=== PATIENT | female | born 1970 | race Caucasian/White ===

== ENCOUNTER 2021-11-23 20:24 | Emergency (ER) | payer OTHER, SELFPAY ==
--- NOTE | ~2021-11-23 | XR_ITS ---
EXAMINATION: XR ANKLE, LEFT CLINICAL INFORMATION: Fall. Pain. Swelling. COMPARISON: None TECHNIQUE: AP, lateral, and mortise views of the left ankle. FINDINGS: The bones and soft tissues are normal. No fracture. Alignment is anatomic. Joint spaces are maintained. No joint effusion. XR/XR ankle LT min 3V IMPRESSION: Normal left ankle.
[2021-11-23 21:44] VITALS: BP 99/72; PULSE 97; RESP 14; TEMP 36.6; O2SAT 98; BMI 25.6
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
[2021-11-23] MEDS: Ibuprofen 600 MG TABLET PO (23:43)
== END 2021-11-24 00:54 | disposition home or self-care (01) ==
PROVIDERS: Emergency Provider Emergency Medicine Emergency Medical Services; PCP Internal Medicine
DX: S93.402A Sprain of unspecified ligament of left ankle, initial encounter (principal); S96.912A Strain of unspecified muscle and tendon at ankle and foot level, left foot, initial encounter; X50.1XXA Overexertion from prolonged static or awkward postures, initial encounter; Y93.89 Activity, other specified; Y92.810 Car as the place of occurrence of the external cause; Y99.9 Unspecified external cause status
CPT/HCPCS: 73610; 99283; 99284

== ENCOUNTER 2022-05-22 07:05 | Outpatient (REF) | payer OTHER, SELFPAY ==
--- NOTE | ~2022-05-22 | MM_ITS ---
EXAMINATION: MM SCREENING DIGITAL BREAST TOMOSYNTHESIS, BILATERAL CLINICAL INFORMATION: Screening. Asymptomatic. The lifetime risk of breast cancer based on the Tyrer-Cuzick Model is 6%. COMPARISON: Mammography: 04/28/2019, 05/30/2016, 05/08/2016 TECHNIQUE: Digital breast tomosynthesis is performed in both the craniocaudal and mediolateral oblique views along with computer-aided detection (CAD). Synthesized 2D images are generated from the tomosynthesis. FINDINGS: There are scattered areas of fibroglandular density (ACR BI-RADS breast composition Category b). There are no significant masses, abnormal calcifications, or other abnormalities. Parenchymal pattern is similar to prior exam. There is no developing density or architectural abnormality. The axilla and skin contours are unremarkable. No significant changes. MM/MM tomosynthesis screening BI IMPRESSION: No mammographic evidence of malignancy. ASSESSMENT: BI-RADS 1: Negative RECOMMENDATION: Routine annual mammography screening. This patient's information was entered into a reminder system with a target due date for their next mammogram.
[2022-05-22 07:09] LABS: MANUAL DIFF FLAG NO
[2022-05-22 07:37] LABS: Basophils Percent Auto 0.7 % (0-2); Eosinophils Absolute Auto 0.2 X10*3/uL (0.0-0.4); Eosinophils Percent Auto 2.6 % (0-4); Hematocrit 44.7 % (37.0-47.0); Hemoglobin 14.7 g/dl (12.0-16.0); Imm Gran Abs Auto 0.02 X10*3/uL (0.00-0.03); Imm Gran Pct Auto 0.3 % (0.0-0.4); Lymphocytes Absolute Auto 1.5 X10*3/uL (1.2-4.9); Mean Corpuscular HGB Conc 32.9 g/dl (31.0-35.0); Mean Corpuscular Hemoglobin 33.2 pg (27.0-33.0); Mean Corpuscular Volume 100.9 fL (80.0-98.0); Mean Platelet Volume 9.4 fL (9.4-12.3); Monocytes Absolute Auto 0.5 X10*3/uL (0.1-1.2); Monocytes Percent Auto 9.3 % (2-11); Neutrophils Absolute Auto 3.6 x10*3/uL (2.0-8.3); Neutrophils Percent Auto 62.1 % (45-73); Platelet Count 263 X10*3/uL (160-400); Red Blood Count 4.43 X10*6/uL (4.20-5.50); Red Cell Distribution Width 11.9 % (11.0-16.0); White Blood Count 5.8 X10*3/uL (4.8-10.8)
[2022-05-22 07:55] LABS: Alanine Aminotransferase 24 U/L (0-31); Albumin Level 4.2 g/dL (3.5-5.0); Alkaline Phosphatase 75 U/L (39-117); Anion Gap 14 (12-20); Aspartate Amino Transferase 19 U/L (5-31); Bilirubin Total 0.5 mg/dL (0.0-1.0); Blood Urea Nitrogen 14 mg/dL (9-16); Calcium 9.2 mg/dL (8.4-10.2); Carbon Dioxide 22 mmol/L (22-29); Chloride 108 mmol/L (96-108); Cholesterol 201 mg/dL; Estimated Glomerular Filt Rate > 60; Glucose Fasting 96 mg/dL (60-99); HDL Cholesterol 52 mg/dL; LDL Cholesterol Calculated 129 mg/dl; Potassium 4.5 mmol/L (3.3-5.1); Sodium 139 mmol/L (135-145); Total Protein 6.7 g/dL (6.5-8.0); Triglycerides 103 mg/dL
[2022-05-22 08:18] LABS: Thyroid Stimulating Hormone 0.21 uIU/mL (0.32-4.0)
== END 2022-05-22 07:06 | disposition home or self-care (01) ==
LOC: HO.MAMMO 07:05
PROVIDERS: PCP Internal Medicine; Visit Provider Internal Medicine
DX: Z12.31 Encounter for screening mammogram for malignant neoplasm of breast (principal); Z13.0 Encounter for screening for diseases of the blood and blood-forming organs and certain disorders involving the immune mechanism; I10 Essential (primary) hypertension; E03.9 Hypothyroidism, unspecified; E78.5 Hyperlipidemia, unspecified
CPT/HCPCS: 36415; 77063; 77067; 80053; 80061; 84443; 85025

== ENCOUNTER 2022-09-18 17:30 | Emergency (ER) | payer OTHER, SELFPAY ==
--- NOTE | ~2022-09-18 | US_ITS ---
EXAMINATION: US ABDOMEN COMPLETE CLINICAL INFORMATION: Diffuse abdominal pain radiating to the back. COMPARISON: None TECHNIQUE: Real-time imaging of the abdominal viscera. FINDINGS: PANCREAS: The visualized portions of the pancreas appear within normal limits. The tail is obscured by overlying bowel gas. ABDOMINAL AORTA: The proximal, mid, and distal segments are normal in caliber. INFERIOR VENA CAVA: Visualized portions are normal. LIVER: The liver is normal in size. The liver contour is normal. Parenchymal echogenicity is normal. No focal hepatic lesion. There is no intrahepatic biliary duct dilatation seen. GALLBLADDER: The gallbladder is contracted limiting its evaluation. No significant pericholecystic free fluid. COMMON BILE DUCT: Normal in caliber measuring 0.2 cm in diameter. RIGHT KIDNEY: Normal. No hydronephrosis. No renal calculi or focal parenchymal lesions. The kidney measures 10 cm in maximum dimension. LEFT KIDNEY: Normal. No hydronephrosis. No renal calculi or focal parenchymal lesions. The kidney measures 10 cm in maximum dimension. SPLEEN: Normal. The spleen measures 8.7 cm in maximum dimension. FREE FLUID: None. US/US abdomen complete IMPRESSION: No acute abnormalities to explain the patient's symptoms, however it is important to know that the gallbladder is contracted limiting its evaluation. If clinically deemed appropriate, consider correlation with CT abdomen/pelvis.
--- NOTE | ~2022-09-18 | XR_ITS ---
EXAMINATION: XR CHEST CLINICAL INFORMATION: Abdominal pain radiating to the chest. COMPARISON: Chest radiograph 10/30/2011. TECHNIQUE: 2 views of the chest were obtained. FINDINGS: Normal appearance of the cardiomediastinal silhouette. No focal airspace opacity, pleural effusion or pneumothorax. No acute osseous abnormalities. The visualized upper abdomen is within normal limits. XR/XR chest 2V IMPRESSION: No acute cardiopulmonary findings.
[2022-09-18 17:32] VITALS: BP 106/60; PULSE 88; RESP 18; TEMP 36.6; O2SAT 97; BMI 28.3
--- NOTE | 2022-09-18 17:32 | ED_ITS ---
HPI - Abdominal Pain General Chief Complaint: Abdominal Pain <MURIEL Aparicio - Last Filed: 09/18/22 17:37> Stated Complaint: upper abd pain radiates to back and chest <MURIEL Aparicio - Last Filed: 09/18/22 17:37> Time Seen by Provider: 09/18/22 19:56 <MURIEL Aparicio - Last Filed: 09/18/22 17:37> Source: patient <Aminta Garcia MD - Last Filed: 09/18/22 20:40> Mode of arrival: ambulatory <Aminta Garcia MD - Last Filed: 09/18/22 20:40> Limitations: no limitations <Aminta Garcia MD - Last Filed: 09/18/22 20:40> History of Present Illness HPI narrative: Patient comes to the emergency room complaining of epigastric pain radiating towards the back for last 2 days. Patient denies nausea vomiting diarrhea, no fever chills, no URI or UTI symptoms. Patient said that sometimes eating or drinking makes the pain worse, otherwise nothing with the changes the pain. <Aminta Garcia MD - Last Filed: 09/18/22 20:40> Related Data Home Medications: Previous Rx's Medication Instructions Recorded betamethasone, augmented 0.05 % 1 appl topical DAILY PRN skin 12/27/20 topical ointment (Diprolene irritation 10 days #15 grams (augmented)) levothyroxine 100 mcg tablet 100 mcg PO DAILY #90 tabs 04/18/22 norethindrone (contraceptive) 0.35 0.35 mg PO DAILY #84 tabs 04/18/22 mg tablet (Incassia) hyoscyamine sulfate 0.125 mg 0.125 mg PO QID PRN dyspepsia #10 09/18/22 disintegrating tablet tabs omeprazole 20 mg capsule,delayed 20 mg PO DAILY #20 caps 09/18/22 release <MURIEL Aparicio - Last Filed: 09/18/22 17:37> Allergies/Adverse Reactions: Allergies Allergy/AdvReac Type Severity Reaction Status Date / Time penicillin V Allergy Unknown rash Verified 05/13/22 09:08 <MURIEL Aparicio - Last Filed: 09/18/22 17:37> Review of Systems Review of Systems Constitutional : No Weight loss, No Fever, No Chills, No Night Sweats, No Fatigue, No Malaise ENT/Mouth : No Hearing loss, No Ear Pain, No Nasal Congestion, No Sinus Pain, No Hoarseness, No sore throat, No Rhinorrhea, No Swallowing Difficulty Eyes: No Eye Pain, No Swelling, No Redness, No Foreign Body, No Discharge, No Vision Changes Cardiovascular : No Chest Pain, No SOB, No Dyspnea on Exertion, No Orthopnea, No Edema, No Palpitations Respiratory : No Cough, No Sputum, No Wheezing, No Smoke Exposure, No Dyspnea Gastrointestinal : No Nausea, No Vomiting, No Diarrhea, No Constipation, complaining of epigastric pain radiating towards the back, Genitourinary : no irregular bleeding, No Dysuria, No Urinary Frequency, No Hematuria, No Urinary Incontinence, No Urgency, No Flank Pain, No Urinary Flow Changes, No Hesitancy Musculoskeletal : No joint pain, No Myalgias, No Joint Swelling Skin : No Skin Lesions, No rash Neuro : No Weakness, No Numbness, No Paresthesias, No Loss of Consciousness, No Dizziness, No Headache Psych : No Anxiety/Panic, No Depression, No SI/HI/AH/VH, No Social Issues, Heme/Lymph: No Bruising, No Bleeding,No Lymphadenopathy Endocrine : No Polyuria, No Polydipsia, No Temperature Intolerance <Aminta Garcia MD - Last Filed: 09/18/22 20:40> COUNTS INCLUDE 234 BEDS AT THE [facility] Social History Social History: Social History Housing: Apartment Alcohol intake: current Alcohol intake frequency: holidays/special occasions only Patient Tobacco Use Status: Current someday Tobacco user Tobacco use type: Cigarette Cigarettes Per Day: 1 Smoked in Last 30 Days: No e-Cigarette/Vaping Use: Never Used Second Hand Smoke Exposure: No Use of substances other than those prescribed or required for medical reasons: No Advance Directives: No Advance Directives Information Provided: No Patient : No service: No Current occupational status: employed Current occupation: [employer] Cognitive needs: No Hearing needs: No Vision needs: No <MURIEL Aparicio - Last Filed: 09/18/22 17:37> Physical Exam ED Vital Signs: Vital Signs - 24 hr 09/18/22 17:32 09/18/22 20:20 Temperature 97.9 F 98.1 F Pulse Rate 88 62 Respiratory Rate 18 18 Blood Pressure 106/60 100/62 Pulse Oximetry 97 99 Oxygen Delivery Method Room Air Room Air BMI result Body Mass Index 28.3 <MURIEL Aparicio - Last Filed: 09/18/22 17:37> Vital Signs - 24 hr 09/18/22 17:32 09/18/22 20:20 Temperature 97.9 F 98.1 F Pulse Rate 88 62 Respiratory Rate 18 18 Blood Pressure 106/60 100/62 Pulse Oximetry 97 99 Oxygen Delivery Method Room Air Room Air BMI result Body Mass Index 28.3 <Aminta Garcia MD - Last Filed: 09/18/22 20:40> Const Other: Appearance: Alert. Oriented X3. No acute distress. Well appearing Eyes: Pupils equal, round and reactive to light. ENT: Pharynx normal. Neck: Normal inspection. Neck supple. No lymph nodes noted. No crepitus CVS: Normal heart rate and rhythm. Pulses normal. Normal S1 and S2 Respiratory: No respiratory distress. Breath sounds normal. No Wheezing. No rales Abdomen: Soft and nontender. No rigidity. No distention. Skin: Skin warm and dry. Normal skin color. Normal skin turgor. Extremities: No lower extremity edema. No Lacerations. No Rash Neuro: Oriented X 3. No motor deficit. No sensory deficit. Moving all extremities. No slurred speech. CN 2 through 12 grossly intact Psych: calm, cooperative, normal affect <Aminta Garcia MD - Last Filed: 09/18/22 20:40> Course Course Course Narrative: RME-17:35PM - 52yoF c PMHx of hypothyroidism and HLD who is presenting to the ED c c/o diffuse abd pain that is radiating to back and now chest since Friday. Returned from [place] 10 days ago. Had COVID-19 x 3 weeks ago on Aug 26 had a + COVID test. She denies any fevers, dizziness, dyspnea on exertion, shortness of breath, orthopnea palpitations, paresthesias, nausea/vomiting, dysuria, hematuria, diarrhea constipation, sick contacts, others with similar symptoms or any other symptoms complaints or concerns at this time. Plan: Labs, EKG, COVID/RSV/flu swab, EKG, chest x-ray. Pt will be sent to the waiting room to be value in the ED for further evaluation treatment. <MURIEL Aparicio - Last Filed: 09/18/22 17:37> Medical Decision Making Medical Decision Making MDM Narrative: -patient's physical exam is benign, no abdominal pain -white blood cell count, LFTs, lipase within normal limits -ultrasound shows no acute abnormalities -patient given famotidine, viscous lidocaine and Maalox -discussed with the patient that she will start treatment. However, if this does not work, she will need to follow up with Gastroenterology, patient may need an upper endoscopy <Aminta Garcia MD - Last Filed: 09/18/22 20:40> Lab Data Result Diagrams: 09/18/22 18:25 09/18/22 18:25 <MURIEL Aparicio - Last Filed: 09/18/22 17:37> Labs: Lab Results 09/18/22 09/18/22 09/18/22 Range/Units 18:25 18:25 18:25 WBC 8.0 (4.8-10.8) X10*3/uL RBC 4.47 (4.20-5.50) X10*6/uL Hgb 14.3 (12.0-16.0) g/dl Hct 42.9 (37.0-47.0) % MCV 96.0 (80.0-98.0) fL MCH 32.0 (27.0-33.0) pg MCHC 33.3 (31.0-35.0) g/dl RDW 12.3 (11.0-16.0) % Plt Count 325 (160-400) X10*3/uL MPV 8.5 L (9.4-12.3) fL Immature Gran % (Auto) 0.4 (0.0-0.4) % Neut % (Auto) 61.8 (45-73) % Lymph % (Auto) 29.8 (20-40) % [place] % (Auto) 6.0 (2-11) % Eos % (Auto) 1.6 (0-4) % Baso % (Auto) 0.4 (0-2) % Lymph # (Auto) 2.4 (1.2-4.9) X10*3/uL [place] # (Auto) 0.5 (0.1-1.2) X10*3/uL Eos # (Auto) 0.1 (0.0-0.4) X10*3/uL Baso # (Auto) 0.0 (0.0-0.2) X10*3/uL Abs Immat Gran (auto) 0.03 (0.00-0.03) X10*3/uL Absolute Neuts (auto) 5.0 (2.0-8.3) x10*3/uL Absolute Nucleated RBC 0.000 (0.0-0.012) X10*3/uL Nucleated RBC % (auto) 0.0 (0.0-0.2) /100WBC PT 11.6 (10.0-13.1) SEC INR 1.0 (0.9-1.1) Sodium 140 (135-145) mmol/L Potassium 4.2 (3.3-5.1) mmol/L Chloride 105 (96-108) mmol/L Carbon Dioxide 26 (22-29) mmol/L Anion Gap 13 (12-20) BUN 12 (9-16) mg/dL Creatinine 0.85 (0.5-1.4) mg/dL Estim Creat Clear Calc 72.6 Estimated GFR > 60 Random Glucose 96 (60-115) mg/dL Calcium 9.2 (8.4-10.2) mg/dL Magnesium 2.3 (1.6-2.6) mg/dL Total Bilirubin 0.3 (0.0-1.0) mg/dL AST 20 (5-31) U/L ALT 24 (0-31) U/L Alkaline Phosphatase 100 (39-117) U/L Troponin I High Sens (<3.5-17.0) ng/L Total Protein 6.8 (6.5-8.0) g/dL Albumin 4.0 (3.5-5.0) g/dL Lipase 30 (8-78) U/L Urine Color Urine Appearance Urine pH (5.0-9.0) Ur Specific Jackpot (1.005-1.025) Urine Protein (Neg-Trace) mg/dL Urine Glucose (UA) (Negative) mg/dL Urine Ketones (Negative) mg/dL Urine Blood (Negative) Urine Nitrite (Negative) Ur Leukocyte Esterase (Negative) Influenza Type A (PCR) (Negative) Influenza Type B (PCR) (Negative) RSV RNA Qual (PCR) (Negative) SARS-CoV-2 RNA (RT-PCR) (Negative) 09/18/22 09/18/22 09/18/22 Range/Units 18:25 18:25 18:36 WBC (4.8-10.8) X10*3/uL RBC (4.20-5.50) X10*6/uL Hgb (12.0-16.0) g/dl Hct (37.0-47.0) % MCV (80.0-98.0) fL MCH (27.0-33.0) pg MCHC (31.0-35.0) g/dl RDW (11.0-16.0) % Plt Count (160-400) X10*3/uL MPV (9.4-12.3) fL Immature Gran % (Auto) (0.0-0.4) % Neut % (Auto) (45-73) % Lymph % (Auto) (20-40) % [place] % (Auto) (2-11) % Eos % (Auto) (0-4) % Baso % (Auto) (0-2) % Lymph # (Auto) (1.2-4.9) X10*3/uL [place] # (Auto) (0.1-1.2) X10*3/uL Eos # (Auto) (0.0-0.4) X10*3/uL Baso # (Auto) (0.0-0.2) X10*3/uL Abs Immat Gran (auto) (0.00-0.03) X10*3/uL Absolute Neuts (auto) (2.0-8.3) x10*3/uL Absolute Nucleated RBC (0.0-0.012) X10*3/uL Nucleated RBC % (auto) (0.0-0.2) /100WBC PT (10.0-13.1) SEC INR (0.9-1.1) Sodium (135-145) mmol/L Potassium (3.3-5.1) mmol/L Chloride (96-108) mmol/L Carbon Dioxide (22-29) mmol/L Anion Gap (12-20) BUN (9-16) mg/dL Creatinine (0.5-1.4) mg/dL Estim Creat Clear Calc Estimated GFR Random Glucose (60-115) mg/dL Calcium (8.4-10.2) mg/dL Magnesium (1.6-2.6) mg/dL Total Bilirubin (0.0-1.0) mg/dL AST (5-31) U/L ALT (0-31) U/L Alkaline Phosphatase (39-117) U/L Troponin I High Sens < 3.5 (<3.5-17.0) ng/L Total Protein (6.5-8.0) g/dL Albumin (3.5-5.0) g/dL Lipase (8-78) U/L Urine Color Yellow Urine Appearance Clear Urine pH 7.5 (5.0-9.0) Ur Specific Jackpot 1.025 (1.005-1.025) Urine Protein Negative (Neg-Trace) mg/dL Urine Glucose (UA) Negative (Negative) mg/dL Urine Ketones Negative (Negative) mg/dL Urine Blood Negative (Negative) Urine Nitrite Negative (Negative) Ur Leukocyte Esterase Negative (Negative) Influenza Type A (PCR) NEGATIVE (Negative) Influenza Type B (PCR) NEGATIVE (Negative) RSV RNA Qual (PCR) NEGATIVE (Negative) SARS-CoV-2 RNA (RT-PCR) NEGATIVE (Negative) <MURIEL Aparicio - Last Filed: 09/18/22 17:37> Lab Results 09/18/22 09/18/22 09/18/22 Range/Units 18:25 18:25 18:25 WBC 8.0 (4.8-10.8) X10*3/uL RBC 4.47 (4.20-5.50) X10*6/uL Hgb 14.3 (12.0-16.0) g/dl Hct 42.9 (37.0-47.0) % MCV 96.0 (80.0-98.0) fL MCH 32.0 (27.0-33.0) pg MCHC 33.3 (31.0-35.0) g/dl RDW 12.3 (11.0-16.0) % Plt Count 325 (160-400) X10*3/uL MPV 8.5 L (9.4-12.3) fL Immature Gran % (Auto) 0.4 (0.0-0.4) % Neut % (Auto) 61.8 (45-73) % Lymph % (Auto) 29.8 (20-40) % [place] % (Auto) 6.0 (2-11) % Eos % (Auto) 1.6 (0-4) % Baso % (Auto) 0.4 (0-2) % Lymph # (Auto) 2.4 (1.2-4.9) X10*3/uL [place] # (Auto) 0.5 (0.1-1.2) X10*3/uL Eos # (Auto) 0.1 (0.0-0.4) X10*3/uL Baso # (Auto) 0.0 (0.0-0.2) X10*3/uL Abs Immat Gran (auto) 0.03 (0.00-0.03) X10*3/uL Absolute Neuts (auto) 5.0 (2.0-8.3) x10*3/uL Absolute Nucleated RBC 0.000 (0.0-0.012) X10*3/uL Nucleated RBC % (auto) 0.0 (0.0-0.2) /100WBC PT 11.6 (10.0-13.1) SEC INR 1.0 (0.9-1.1) Sodium 140 (135-145) mmol/L Potassium 4.2 (3.3-5.1) mmol/L Chloride 105 (96-108) mmol/L Carbon Dioxide 26 (22-29) mmol/L Anion Gap 13 (12-20) BUN 12 (9-16) mg/dL Creatinine 0.85 (0.5-1.4) mg/dL Estim Creat Clear Calc 72.6 Estimated GFR > 60 Random Glucose 96 (60-115) mg/dL Calcium 9.2 (8.4-10.2) mg/dL Magnesium 2.3 (1.6-2.6) mg/dL Total Bilirubin 0.3 (0.0-1.0) mg/dL AST 20 (5-31) U/L ALT 24 (0-31) U/L Alkaline Phosphatase 100 (39-117) U/L Troponin I High Sens (<3.5-17.0) ng/L Total Protein 6.8 (6.5-8.0) g/dL Albumin 4.0 (3.5-5.0) g/dL Lipase 30 (8-78) U/L Urine Color Urine Appearance Urine pH (5.0-9.0) Ur Specific Jackpot (1.005-1.025) Urine Protein (Neg-Trace) mg/dL Urine Glucose (UA) (Negative) mg/dL Urine Ketones (Negative) mg/dL Urine Blood (Negative) Urine Nitrite (Negative) Ur Leukocyte Esterase (Negative) Influenza Type A (PCR) (Negative) Influenza Type B (PCR) (Negative) RSV RNA Qual (PCR) (Negative) SARS-CoV-2 RNA (RT-PCR) (Negative) 09/18/22 09/18/22 09/18/22 Range/Units 18:25 18:25 18:36 WBC (4.8-10.8) X10*3/uL RBC (4.20-5.50) X10*6/uL Hgb (12.0-16.0) g/dl Hct (37.0-47.0) % MCV (80.0-98.0) fL MCH (27.0-33.0) pg MCHC (31.0-35.0) g/dl RDW (11.0-16.0) % Plt Count (160-400) X10*3/uL MPV (9.4-12.3) fL Immature Gran % (Auto) (0.0-0.4) % Neut % (Auto) (45-73) % Lymph % (Auto) (20-40) % [place] % (Auto) (2-11) % Eos % (Auto) (0-4) % Baso % (Auto) (0-2) % Lymph # (Auto) (1.2-4.9) X10*3/uL [place] # (Auto) (0.1-1.2) X10*3/uL Eos # (Auto) (0.0-0.4) X10*3/uL Baso # (Auto) (0.0-0.2) X10*3/uL Abs Immat Gran (auto) (0.00-0.03) X10*3/uL Absolute Neuts (auto) (2.0-8.3) x10*3/uL Absolute Nucleated RBC (0.0-0.012) X10*3/uL Nucleated RBC % (auto) (0.0-0.2) /100WBC PT (10.0-13.1) SEC INR (0.9-1.1) Sodium (135-145) mmol/L Potassium (3.3-5.1) mmol/L Chloride (96-108) mmol/L Carbon Dioxide (22-29) mmol/L Anion Gap (12-20) BUN (9-16) mg/dL Creatinine (0.5-1.4) mg/dL Estim Creat Clear Calc Estimated GFR Random Glucose (60-115) mg/dL Calcium (8.4-10.2) mg/dL Magnesium (1.6-2.6) mg/dL Total Bilirubin (0.0-1.0) mg/dL AST (5-31) U/L ALT (0-31) U/L Alkaline Phosphatase (39-117) U/L Troponin I High Sens < 3.5 (<3.5-17.0) ng/L Total Protein (6.5-8.0) g/dL Albumin (3.5-5.0) g/dL Lipase (8-78) U/L Urine Color Yellow Urine Appearance Clear Urine pH 7.5 (5.0-9.0) Ur Specific Jackpot 1.025 (1.005-1.025) Urine Protein Negative (Neg-Trace) mg/dL Urine Glucose (UA) Negative (Negative) mg/dL Urine Ketones Negative (Negative) mg/dL Urine Blood Negative (Negative) Urine Nitrite Negative (Negative) Ur Leukocyte Esterase Negative (Negative) Influenza Type A (PCR) NEGATIVE (Negative) Influenza Type B (PCR) NEGATIVE (Negative) RSV RNA Qual (PCR) NEGATIVE (Negative) SARS-CoV-2 RNA (RT-PCR) NEGATIVE (Negative) <Aminta Garcia MD - Last Filed: 09/18/22 20:40> Medications Administered Discontinued Medications Generic Name Dose Route Start Last Admin Trade Name Freq PRN Reason Stop Dose Admin Al Hydroxide/Mg Hydroxide 30 ml 09/18/22 20:09 09/18/22 20:17 Magnesium Hydrox/Alum Hydrox 30 Ml Oral.Susp PO 09/18/22 20:10 30 ml ONCE ONE Administration Famotidine 20 mg 09/18/22 20:09 09/18/22 20:17 Famotidine 20 Mg Tablet PO 09/18/22 20:10 20 mg ONCE ONE Administration Lidocaine HCl 15 ml 09/18/22 20:09 09/18/22 20:17 Lidocaine Hcl Viscous 2 % 15 Ml Solution MUCOUS MEM 09/18/22 20:10 15 ml ONCE ONE Administration <MURIEL Aparicio - Last Filed: 09/18/22 17:37> Medications Administered Discontinued Medications Generic Name Dose Route Start Last Admin Trade Name Freq PRN Reason Stop Dose Admin Al Hydroxide/Mg Hydroxide 30 ml 09/18/22 20:09 09/18/22 20:17 Magnesium Hydrox/Alum Hydrox 30 Ml Oral.Susp PO 09/18/22 20:10 30 ml ONCE ONE Administration Famotidine 20 mg 09/18/22 20:09 09/18/22 20:17 Famotidine 20 Mg Tablet PO 09/18/22 20:10 20 mg ONCE ONE Administration Lidocaine HCl 15 ml 09/18/22 20:09 09/18/22 20:17 Lidocaine Hcl Viscous 2 % 15 Ml Solution MUCOUS MEM 09/18/22 20:10 15 ml ONCE ONE Administration <Aminta Garcia MD - Last Filed: 09/18/22 20:40> Discharge Plan Discharge Clinical Impression: Abdominal pain <MURIEL Aparicio - Last Filed: 09/18/22 17:37> Patient Disposition: Home, Self-Care <MURIEL Aparicio - Last Filed: 09/18/22 17:37> Instructions: Abdominal Pain (ED) <MURIEL Aparicio - Last Filed: 09/18/22 17:37> Additional Instructions: Please follow-up with your primary care physician tomorrow. If you have any worsening or new symptoms, please return to the emergency room or call 911 <MURIEL Aparicio - Last Filed: 09/18/22 17:37> Prescriptions: New hyoscyamine sulfate 0.125 mg tablet,disintegrating 0.125 mg PO QID PRN (Reason: dyspepsia) Qty: 10 0RF omeprazole 20 mg capsule,delayed release(DR/EC) 20 mg PO DAILY Qty: 20 0RF No Action levothyroxine 100 mcg tablet 100 mcg PO DAILY Qty: 90 1RF norethindrone (contraceptive) [Incassia] 0.35 mg tablet 0.35 mg PO DAILY Qty: 84 2RF betamethasone, augmented [Diprolene (augmented)] 0.05 % ointment 1 appl topical DAILY PRN (Reason: skin irritation) 10 Days Qty: 15 0RF <MURIEL Aparicio - Last Filed: 09/18/22 17:37>
--- NOTE | 2022-09-18 17:35 | ECG_ITS ---
Test Reason : ABD PAIN Blood Pressure : / mmHG Vent. Rate : 084 BPM Atrial Rate : 084 BPM P-R Int : 140 ms QRS Dur : 072 ms QT Int : 372 ms P-R-T Axes : 062 052 026 degrees QTc Int : 439 ms Normal sinus rhythm ST & T wave abnormality, consider anterior ischemia Abnormal ECG When compared with ECG of 30-OCT-2011 08:59, No significant change was found Referred By: Mary Alice Stone Electronically Signed By:ABHI CORRAL
[2022-09-18 18:30] LABS: MANUAL DIFF FLAG NO
--- NOTE | 2022-09-18 18:30 | MHC.EDTECH ---
patient ekg was done ,also blood drawn and rsv swab done and send to lab .
[2022-09-18 18:33] LABS: Basophils Percent Auto 0.4 % (0-2); Eosinophils Absolute Auto 0.1 X10*3/uL (0.0-0.4); Eosinophils Percent Auto 1.6 % (0-4); Hematocrit 42.9 % (37.0-47.0); Hemoglobin 14.3 g/dl (12.0-16.0); Imm Gran Abs Auto 0.03 X10*3/uL (0.00-0.03); Imm Gran Pct Auto 0.4 % (0.0-0.4); Lymphocytes Absolute Auto 2.4 X10*3/uL (1.2-4.9); Lymphocytes Percent Auto 29.8 % (20-40); Mean Corpuscular HGB Conc 33.3 g/dl (31.0-35.0); Mean Platelet Volume 8.5 fL (9.4-12.3); Monocytes Absolute Auto 0.5 X10*3/uL (0.1-1.2); Neutrophils Percent Auto 61.8 % (45-73); Platelet Count 325 X10*3/uL (160-400); Red Blood Count 4.47 X10*6/uL (4.20-5.50); Red Cell Distribution Width 12.3 % (11.0-16.0)
[2022-09-18 18:39] LABS: Prothrombin Time 11.6 SEC (10.0-13.1)
[2022-09-18 18:44] LABS: Appearance Urine Clear; Color Urine Yellow; Glucose Urine UA Negative (Negative); Leukocyte Esterase Urine Negative (Negative); Nitrite Urine Negative (Negative); PH 7.5 (5.0-9.0); Specific Gravity - Urine 1.025 (1.005-1.025); Urine Blood Negative (Negative); Urine Ketones Negative (Negative); Urine Protein Negative (Neg-Trace)
[2022-09-18 18:48] LABS: Alanine Aminotransferase 24 U/L (0-31); Alkaline Phosphatase 100 U/L (39-117); Anion Gap 13 (12-20); Aspartate Amino Transferase 20 U/L (5-31); Bilirubin Total 0.3 mg/dL (0.0-1.0); Blood Urea Nitrogen 12 mg/dL (9-16); Calcium 9.2 mg/dL (8.4-10.2); Carbon Dioxide 26 mmol/L (22-29); Chloride 105 mmol/L (96-108); Creatinine Clr Calc Pharmacy 72.6; Estimated Glomerular Filt Rate > 60; Glucose Random 96 mg/dL (60-115); Lipase 30 U/L (8-78); Magnesium 2.3 mg/dL (1.6-2.6); Potassium 4.2 mmol/L (3.3-5.1); Sodium 140 mmol/L (135-145); Total Protein 6.8 g/dL (6.5-8.0)
[2022-09-18 18:55] LABS: Troponin-I High Sensitivity < 3.5 ng/L (<3.5-17.0)
[2022-09-18 19:31] LABS: Influenza A PCR NEGATIVE (Negative); Influenza B PCR NEGATIVE (Negative); Resp Syncy Virus RNA Qual PCR NEGATIVE (Negative); SARS COV2 PCR INHOUSE NEGATIVE (Negative)
[2022-09-18] MEDS: Lidocaine HCl Viscous 2 % 15 ML SOLUTION MUCOUS MEM (20:17)
[2022-09-18] MEDS: Magnesium Hydrox/Alum Hydrox 30 ML ORAL.SUSP PO (20:17)
[2022-09-18] MEDS: Famotidine 20 MG TABLET PO (20:17)
[2022-09-18 20:20] VITALS: BP 100/62; PULSE 62; RESP 18; TEMP 36.7; O2SAT 99
== END 2022-09-18 20:50 | disposition home or self-care (01) ==
PROVIDERS: Physician Assistant Medical; Emergency Provider Emergency Medicine; PCP Internal Medicine
DX: R10.9 Unspecified abdominal pain (principal); Z20.822 Contact with and (suspected) exposure to COVID-19; Z20.828 Contact with and (suspected) exposure to other viral communicable diseases; E78.5 Hyperlipidemia, unspecified; F17.210 Nicotine dependence, cigarettes, uncomplicated
CPT/HCPCS: 0241U; 36415; 71046; 76700; 80053; 81003; 83690; 83735; 84484; 85025; 85610; 93005; 99284

== ENCOUNTER 2023-03-08 11:41 | Emergency (ER) | payer OTHER, SELFPAY ==
--- NOTE | ~2023-03-08 | XR_ITS ---
EXAMINATION: XR KNEE, LEFT CLINICAL INFORMATION: Knee pain status post buckling injury COMPARISON: None available. TECHNIQUE: Four views of the left knee. FINDINGS: Moderate size knee joint effusion with a suggestion of very subtle fat fluid level possibly representing lipohemarthrosis. I do not however appreciate any obvious cortical disruption to suggest displaced fracture or dislocation. Alignment is anatomic. Surrounding soft tissues unremarkable XR/XR knee LT 4V IMPRESSION: Moderate-sized knee joint effusion with a suggestion of very subtle fat fluid level. This could represent a lipohemarthrosis in the setting of trauma. In the setting of trauma, this could represent an occult fracture but I do not appreciate any cortical disruption or trabecular irregularity to suggest discrete fracture on these images.
--- NOTE | ~2023-03-08 | CT_ITS ---
EXAMINATION: CT KNEE WITHOUT CONTRAST, LEFT CLINICAL INFORMATION: Pain. Trauma. Question occult fracture. COMPARISON: Left knee radiographs dated 03/08/2023. TECHNIQUE: Contiguous axial CT images of the left knee were obtained without contrast. Sagittal and coronal reformats were provided and reviewed. This CT examination was performed using dose optimization techniques as appropriate, variously including the following: *Automated exposure control *Adjustment of mA and/or kV according to patient size (this includes techniques or standardized protocols for targeted exams where dose is matched to indication/reason for exam; i.e. extremities or head) *Use of iterative reconstruction technique. DOSE: 176 mGy-cm. FINDINGS: No displaced fracture. No cortical step-off. No joint space narrowing or marginal osteophytes. No dislocation. No concerning lytic or blastic osseous lesion. Moderate lipohemarthrosis. Trace Dee's cyst. No abnormal soft tissue mass or fluid collection. The visualized muscles and tendons are grossly intact; however, evaluation is limited on CT examination. CT/CT knee LT wo IV con IMPRESSION: 1. No displaced fracture. 2. Moderate lipohemarthrosis. Trace Dee's cyst. 3. Intra-articular ligaments and menisci are not well evaluated on CT examination and, given the presence of a lipohemarthrosis, MRI could help further evaluate for intra-articular pathology including an occult fracture.
[2023-03-08 12:30] VITALS: BP 102/62; PULSE 88; RESP 18; TEMP 36.3; O2SAT 97; BMI 27.0
--- NOTE | 2023-03-08 12:32 | ED_ITS ---
HPI - Extremity Injury (Lower) General Chief Complaint: Extremity Injury, Lower Stated Complaint: knee pain Time Seen by Provider: 03/08/23 13:06 Source: patient Mode of arrival: ambulatory Limitations: no limitations History of Present Illness HPI Narrative: Patient is a 52-year-old female presents emergency department for evaluation of traumatic left knee pain. She reports that last night she was dancing and felt her knee buckle causing her to fall to the ground. She is having pain today upon ambulation and has noticed some localized swelling. Denies numbness, tingling, cold sensation to the foot. Denies any prior knee injury/complication. Related Data Previous Rx's Medication Instructions Recorded betamethasone, augmented 0.05 % 1 appl topical DAILY PRN skin 12/27/20 topical ointment (Diprolene irritation 10 days #15 grams (augmented)) hyoscyamine sulfate 0.125 mg 0.125 mg PO QID PRN dyspepsia #10 09/18/22 disintegrating tablet tabs omeprazole 20 mg capsule,delayed 20 mg PO DAILY #20 caps 09/18/22 release levothyroxine 100 mcg tablet 100 mcg PO DAILY #90 tabs 09/19/22 azithromycin 250 mg tablet See Rx Instructions PO .COMPLEX #6 10/01/22 tabs fluconazole 100 mg tablet 100 mg PO DAILY #3 tabs 10/01/22 (Diflucan) norethindrone (contraceptive) 0.35 0.35 mg PO DAILY #84 tabs 12/09/22 mg tablet (Incassia) Allergies Allergy/AdvReac Type Severity Reaction Status Date / Time penicillin V Allergy Unknown rash Verified 03/08/23 12:30 Review of Systems Review of Systems: Yes all other systems are reviewed and are negative PMFSH Past Medical History Attestation statement: The following information was validated with the patient. 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 No acute distress.?Normal affect. CVS: Heart sounds normal. Normal heart rate and rhythm.? Pulses normal.?? Respiratory: No respiratory distress.? Lung sounds clear to auscultation bilaterally?? Abdomen: Soft and non-tender. Skin: Skin warm and dry.? Normal skin color.? ?? Extremities: No lower extremity edema. positive left knee effusion. No laxity.? No calf ttp. 2+ DP/PT pulse bilaterally Neuro: Moves all extremities spontaneously. Sensation intact bilaterally. CN II- XII intact. No focal neuro deficits. Ambulates with antalgic gait. Course Course Course Narrative: RME - 52 yo female presents to the ER for evaluation of 8/10 left knee pain that started last night after she hurt it while dancing last night. The knee buckled on her and she fell to the ground. Pain with ambulation today and some swelling. Plan: x-ray Reevaluation(s) Reevaluation #1: XR imaging reveals a moderate-sized effusion and subtle fat fluid level which may represent lipohemarthrosis and could represent occult fracture but there is no appreciable cortical destruction or irregularity to suggest fracture. Consult with Orthopedics on-call; Christal LLAMAS who recommends CT imaging for further evaluation. Time: 13:41 Reevaluation #2: CT imaging reveals no displaced fracture there is however presence of moderate lipohemarthrosis. At this time will place patient in knee immobilizer with crutches and follow-up outpatient with orthopedics. Reviewed with patient worrisome signs and symptoms that would warrant re-evaluation in the emergency department. All questions Answered Time: 15:10 Medical Decision Making Medical Decision Making MDM Narrative: patient is a 52-year-old female presents emergency department for evaluation of traumatic left knee pain as per HPI. She is overall well-appearing. She is weight-bearing but with significant pain. Examination with notable effusion, decreased AROM, no laxity. Will obtain XR imaging to evaluate for fracture/ dislocation. Differential Diagnosis Differential Diagnoses: The differential diagnosis associated with the presentation includes ( Fracture, dislocation, sprain, meniscus tear, ligamentous injury, bursitis, fusion) Admission/Observation Consideration of admission/observation: Escalation of care including admission/observation considered Consult Healthcare Provider Management of the patient was discussed with: Wire Fence Erector ( Orthopedics as per course) Independent Interpretation I performed an independent interpretation of an: Plain X-Ray ( I personally interpreted XR imaging and agree with radiologist impression) Radiology Impression Discussion of test interpretation with radiology: I have reviewed the radiologist's reading. Radiologist Impression: XR/XR knee LT 4V IMPRESSION: Moderate-sized knee joint effusion with a suggestion of very subtle fat fluid level. This could represent a lipohemarthrosis in the setting of trauma. In the setting of trauma, this could represent an occult fracture but I do not appreciate any cortical disruption or trabecular irregularity to suggest discrete fracture on these images. CT/CT knee LT wo IV con IMPRESSION: 1. No displaced fracture. ? 2. Moderate lipohemarthrosis. Trace Dee's cyst. ? 3. Intra-articular ligaments and menisci are not well evaluated on CT examination and, given the presence of a lipohemarthrosis, MRI could help further evaluate for intra-articular pathology including an occult fracture. Tests considered The following testing was considered but not selected: considered MRI imaging for evaluation of ligamentous injury, however felt not emergently required at this time, will have patient follow-up outpatient with orthopedics. Prescription Management I considered prescription management with: Pain Medication ( acetaminophen/ibuprofen) Discharge Plan Discharge Clinical Impression: Left knee sprain Patient Disposition: Home, Self-Care Instructions: Knee Sprain (ED), Crutch Instructions (ED) Additional Instructions: Please keep the knee immobilizer in place when out of bed or ambulating with the use of crutches. You may remove the immobilizer while at rest and to apply ice for 10-15 minutes 3-4 times daily. I have provided contact information for the orthopedic office. Please contact their office Friday morning to arrange for a follow-up visit. You may return back to emergency department any new or worsening symptoms or concerns. You can take ibuprofen 200 mg, 3 tablets (600mg) every 6-8 hours as needed for pain, in addition to Tylenol 500 mg, 2 tablets (1,000mg) every 4-6 hours as needed for pain, but not to exceed 3 doses daily (3,000mg).? Prescriptions: No Action levothyroxine 100 mcg tablet 100 mcg PO DAILY Qty: 90 1RF norethindrone (contraceptive) [Incassia] 0.35 mg tablet 0.35 mg PO DAILY Qty: 84 2RF hyoscyamine sulfate 0.125 mg tablet,disintegrating 0.125 mg PO QID PRN (Reason: dyspepsia) Qty: 10 0RF omeprazole 20 mg capsule,delayed release(DR/EC) 20 mg PO DAILY Qty: 20 0RF betamethasone, augmented [Diprolene (augmented)] 0.05 % ointment 1 appl topical DAILY PRN (Reason: skin irritation) 10 Days Qty: 15 0RF fluconazole [Diflucan] 100 mg tablet 100 mg PO DAILY Qty: 3 0RF azithromycin 250 mg tablet See Rx Instructions PO .COMPLEX Qty: 6 0RF Rx Instructions: take 500 mg today (day 1), then 250 mg for 4 days (days 2-5) PO Referrals: Marisela Alejandra PA-C [Physician Quality Assurance Tester] - Interventions: ED Discharge Assessment Last Done: 03/08/23 16:02 Discharge Date/Time: 03/08/23 16:02
== END 2023-03-08 16:02 | disposition home or self-care (01) ==
PROVIDERS: Emergency Provider Student in an Organized Health Care Education/Training Program; PCP Internal Medicine
DX: S83.92XA Sprain of unspecified site of left knee, initial encounter (principal); X50.9XXA Other and unspecified overexertion or strenuous movements or postures, initial encounter; Y93.41 Activity, dancing; Y92.9 Unspecified place or not applicable; Y99.9 Unspecified external cause status
CPT/HCPCS: 73564; 73700; 99282; 99284

== ENCOUNTER 2023-05-14 09:47 | Outpatient (AMB) | payer BC, OTHER, SELFPAY ==
[2023-05-14 09:50] VITALS: BP 108/60; PULSE 86; O2SAT 98; BMI 27.5
--- NOTE | 2023-05-14 09:50 | A.OFFPC_ITS ---
Vital Signs 05/14/23 09:50 Height 5 ft 3 in Weight 155 lb BMI 27.5 BP 108/60 Blood Pressure Location Lt brachial Position Sitting Pulse 86 Pulse Source Pulse Oximeter Pulse Oximetry (%) 98 Oxygen Delivery Method Room Air Intake Visit Reasons: PE Real Time Analyst Required: No Remelt Sugar Boiler: Not Required per policy Accompanied by: Self / Same As Patient Allergies penicillin V Allergy (Unknown, Verified 05/14/23 09:50) rash Medication List - Last Reconciled 05/14/23 by James Del Real MD azithromycin take 500 mg today (day 1), then 250 mg for 4 days (days 2-5) PO betamethasone, augmented 0.05 % (Diprolene (augmented)) 1 appl topical DAILY PRN 10 days fluconazole (Diflucan) 100 mg PO DAILY hyoscyamine sulfate 0.125 mg PO QID PRN levothyroxine 100 mcg PO DAILY norethindrone (contraceptive) (Incassia) 0.35 mg PO DAILY omeprazole 20 mg PO DAILY Tobacco use date assessed: 10/01/22 Dental Screening Dental Screen Date: 05/14/23 Did you have a dental visit in the last 12 months?: Yes Did you have a dental problem in the last 6 months where you did not have access to dental care?: No Was dental information given to patient?: Patient has dentist HPI PE HPI Details hypothyroidism on rx; doing well PFSH Social History Housing: Apartment Alcohol intake: current Alcohol intake frequency: holidays/special occasions only Patient Tobacco Use Status: Current someday Tobacco user Tobacco use type: Cigarette Cigarettes Per Day: 1 e-Cigarette/Vaping Use: Never Used Second Hand Smoke Exposure: No service: No Current occupational status: employed 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 1. Little interest or pleasure in doing things: not at all 2. Feeling down, depressed, or hopeless: not at all 3. Trouble falling or staying asleep, or sleeping too much: not at all 4. Feeling tired or having little energy: not at all 5. Poor appetite or overeating: not at all 6. Feeling bad about yourself - or that you are a failure or have let yourself or your family down: not at all 7. Trouble concentrating on things, such as reading the newspaper or watching television: not at all 8. Moving or speaking so slowly that other people could have noticed. Or the opposite - being so fidgety or restless that you have been moving around a lot more than usual: not at all 9. Thoughts that you would be better off or of hurting yourself in some way: not at all Total score: 0 Depression Screening Interpretation: Negative 85164 - PHQ-9 Billing: Yes Source: Developed by Drs. Emil Rivera, aPulo Arguello and colleagues, with an educational jennifer from [employer]. Thrive Questionnaire Date Thrive assessed: 10/01/22 AUDIT C Alcohol Use Questionnaire (AUDIT-C) 1. How often do you have a drink containing alcohol?: Monthly or less 2. How many drinks containing alcohol do you have on a typical day when you are drinking?: 1 or 2 3. How often do you have six or more drinks on one occasion?: Never Total Score: 1 Score Reviewed/Action Taken: Yes REHAN-7 AMB Questionnaire REHAN-7 Date REHAN - 7 assessed: 10/01/22 Source: Developed by Drs. Emil Rivera, Isha Aquino, Paulo Shepherd and colleagues, with an educational jennifer from [employer]. Review of Systems Const Denies chills, Denies fatigue, Denies headache(s) and Denies weight loss Eyes Denies change in vision, Denies diplopia and Denies eye pain ENT Denies vertigo, Denies dizziness, Denies headache(s) and Denies nasal discharge Card Denies chest pain, Denies rapid heart rate and Denies dyspnea on exertion Resp Denies chest congestion, Denies cough, Denies pain with cough and Denies dyspnea on exertion GI Denies abdominal pain, Denies hematochezia and Denies change in bowel habits Musc Denies myalgias, Denies arthralgias and Denies joint swelling Skin/Breast Denies lesions and Denies unusual bruising Neuro Denies vertigo, Denies dizziness, Denies headache(s) and Denies focal weakness Endo Denies fatigue Physical exam (Primary Care) Vital Signs: Last Vital Signs Pulse 86 05/14/23 09:50 BP 108/60 05/14/23 09:50 Pulse Ox 98 05/14/23 09:50 Oxygen Delivery Method Room Air 05/14/23 09:50 BMI result Body Mass Index 27.5 Tobacco/Smoking Status: Tobacco use Status Tobacco use date assessed 10/01/22 05/14/23 09:53 Patient Tobacco Use Status Current someday Tobacco 05/14/23 09:53 Tobacco use type Cigarette 05/14/23 09:53 e-Cigarette/Vaping Use Never Used 05/14/23 09:53 PHQ-9: PHQ-9 Score PHQ-9: Total score 0 05/14/23 09:53 Depression Screening Interpretation: Negative Thrive Assessment: Date of Thrive Assessment Date Thrive assessed 10/01/22 05/14/23 09:53 Const General: cooperative, healthy appearing and no acute distress Orientation/consciousness: oriented to person, oriented to place and oriented to time HENMT Head: Yes normal to inspection, Yes normocephalic and Yes atraumatic Mouth: Normal oral and palatal mucosa present and tongue normal Throat: Yes posterior oropharynx normal and Yes uvula midline Eyes General: appearance normal, both eyes and all related structures Neck Neck: Yes normal visual inspection, Yes full ROM and Yes no lymphadenopathy Thyroid: Thyroid normal Carotids: normal carotid upstroke Chest Chest palpation & inspection: normal inspection of the chest Resp Effort & Inspection: normal respiratory effort and able to speak in complete sentences Auscultation: clear to auscultation bilaterally Cardio Jugular venous distension: no JVD Palpation: normal PMI Rate: regular rate Rhythm: regular rhythm Heart sounds: S1 normal heart sound present and S2 normal heart sound present GI Inspection: Yes normal to inspection Palpation (GI): Soft to palpation and No hepatosplenomegaly present Auscultation: normal bowel sounds General: Yes no CVA tenderness Back/Spine/Pelvis Back: no CVA tenderness Skin General skin exam: no rashes or lesions noted Neuro General: oriented to person, oriented to place and oriented to time Extrem General: Yes normal to inspection and Yes full ROM Assessment and Plan Assessment & Plan (1) Encounter for physical examination: Code(s): Z00.00 - Encounter for general adult medical examination without abnormal findings Plan: do labs; healthy (2) Hypothyroidism: Code(s): E03.9 - Hypothyroidism, unspecified Plan: stable; same rx Orders: Orders Complete Blood Count Auto Diff Today D64.9 - Anemia, unspecified Comprehensive [place]. Panel Fast Today N28.9 - Disorder of kidney and ureter, unspecified Lipid Panel Today E78.5 - Hyperlipidemia, unspecified Thyroid Stimulating Hormone Today E03.9 - Hypothyroidism, unspecified Referrals Gastroenterology Referral Z12.11 - Encounter for screening for malignant neoplasm of colon Medications: Refilled omeprazole 20 mg PO DAILY 20 caps 0RF Coding Level of Care Code Est Pt Prev Care 40-64y(40018) Diagnoses Encounter for physical examination Z00.00 Hypothyroidism E03.9
== END 2023-05-14 10:05 | disposition home or self-care (01) ==
PROVIDERS: Visit Provider Internal Medicine
DX: Z00.00 Encounter for general adult medical examination without abnormal findings (principal); E03.9 Hypothyroidism, unspecified
CPT/HCPCS: 99396

== ENCOUNTER 2023-06-04 07:48 | Outpatient (REF) | payer OTHER, SELFPAY ==
[2023-06-04 09:19] LABS: Alanine Aminotransferase 21 U/L (0-31); Albumin Level 3.9 g/dL (3.5-5.0); Alkaline Phosphatase 84 U/L (39-117); Anion Gap 14 (12-20); Aspartate Amino Transferase 19 U/L (5-31); Bilirubin Total 0.7 mg/dL (0.0-1.0); Blood Urea Nitrogen 14 mg/dL (9-16); Calcium 9.2 mg/dL (8.4-10.2); Carbon Dioxide 22 mmol/L (22-29); Chloride 110 mmol/L (96-108); Cholesterol 195 mg/dL (<200); Estimated Glomerular Filt Rate > 60; Glucose Fasting 85 mg/dL (60-99); HDL Cholesterol 60 mg/dL (>40); LDL Cholesterol Calculated 121 mg/dL (<100); Potassium 4.2 mmol/L (3.3-5.1); Sodium 142 mmol/L (135-145); Total Protein 6.8 g/dL (6.5-8.0); Triglycerides 70 mg/dL (<150)
[2023-06-04 09:35] LABS: Thyroid Stimulating Hormone 0.33 uIU/mL (0.32-4.0)
== END 2023-06-04 07:49 | disposition home or self-care (01) ==
LOC: HO.LAB 07:48
PROVIDERS: PCP Internal Medicine; Visit Provider Internal Medicine
DX: D64.9 Anemia, unspecified (principal); N28.9 Disorder of kidney and ureter, unspecified; E78.5 Hyperlipidemia, unspecified; E03.9 Hypothyroidism, unspecified
CPT/HCPCS: 36415; 80053; 80061; 84443; 85025

== ENCOUNTER 2023-12-01 11:14 | Outpatient (AMB) | payer OTHER, SELFPAY ==
[2023-12-01 11:16] VITALS: BP 108/72; PULSE 79; O2SAT 97; BMI 28.0
--- NOTE | 2023-12-01 11:16 | A.OFFPC_ITS ---
Vital Signs 12/01/23 11:16 Height 5 ft 3 in Weight 158 lb 0.8 oz BMI 28.0 BP 108/72 Blood Pressure Location Lt brachial Position Sitting Pulse 79 Pulse Source Pulse Oximeter Pulse Oximetry (%) 97 Oxygen Delivery Method Room Air Intake Visit Reasons: ? of eye infection Scaffolding Helper Required: No Allergies penicillin V Allergy (Unknown, Verified 12/01/23 11:19) rash Medication List - Last Reconciled 12/01/23 by James Del Real MD betamethasone, augmented 0.05 % (Diprolene (augmented)) 1 appl topical DAILY PRN 10 days fluconazole (Diflucan) 100 mg PO DAILY hyoscyamine sulfate 0.125 mg PO QID PRN levothyroxine 100 mcg PO DAILY norethindrone (contraceptive) (Incassia) 0.35 mg PO DAILY omeprazole 20 mg PO DAILY tobramycin 0.3% 1 drp ophthalmic (eye) Q4H Tobacco use date assessed: 12/01/23 Dental Screening Dental Screen Date: 05/14/23 HPI ? 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 How often do you have a drink containing alcohol?: Monthly or less 2. How many drinks containing alcohol do you have on a typical day when you are drinking?: 1 or 2 3. How often do you have six or more drinks on one occasion?: Never Total Score: 1 Score Reviewed/Action Taken: Yes REHAN-7 AMB Questionnaire REHAN-7 Date REHAN - 7 assessed: 12/01/23 Source: Developed by Drs. Emil Rivera, Isha Aquino, Paluo Shepherd and colleagues, with an educational jennifer from [employer]. Review of Systems Const Denies chills, Denies headache(s) and Denies weight loss ENT Denies headache(s) Card Denies chest pain, Denies syncope, Denies irregular heart rhythm and Denies dyspnea Resp Denies chest congestion, Denies cough and Denies dyspnea GI Denies abdominal pain, Denies change in stool character, Denies nausea and Denies vomiting Musc Denies deformity and Denies joint swelling Neuro Denies syncope and Denies headache(s) Physical exam (Primary Care) Vital Signs: Last Vital Signs Pulse 79 12/01/23 11:16 BP 108/72 12/01/23 11:16 Pulse Ox 97 12/01/23 11:16 Oxygen Delivery Method Room Air 12/01/23 11:16 BMI result Body Mass Index 28.0 Tobacco/Smoking Status: Tobacco use Status Tobacco use date assessed 12/01/23 12/01/23 11:19 Patient Tobacco Use Status Current someday Tobacco 12/01/23 11:19 Tobacco use type Cigarette 12/01/23 11:19 e-Cigarette/Vaping Use Never Used 12/01/23 11:19 Thrive Assessment: Date of Thrive Assessment Date Thrive assessed 12/01/23 12/01/23 11:19 Const General: cooperative, comfortable, no acute distress and alert HENMT Other: conjunctivitis left eye Neck Neck: Yes no lymphadenopathy Thyroid: Thyroid normal Resp Effort & Inspection: normal respiratory effort Auscultation: clear to auscultation bilaterally Percussion: percussion normal Cardio Jugular venous distension: no JVD Palpation: normal PMI Rate: regular rate Rhythm: regular rhythm Heart sounds: S1 normal heart sound present and S2 normal heart sound present GI Inspection: Yes normal to inspection Palpation (GI): No hepatosplenomegaly present Skin General skin exam: no rashes or lesions noted Extrem General: Yes no clubbing, cyanosis or edema Assessment and Plan Assessment & Plan (1) Conjunctivitis: Code(s): H10.9 - Unspecified conjunctivitis Plan: rx sent Medications: New tobramycin 0.3% 1 drp ophthalmic (eye) Q4H 5 mL 0RF Coding Level of Care Code Est Pt Level 3 (15946) Diagnoses Conjunctivitis H10.9
== END 2023-12-01 12:16 | disposition home or self-care (01) ==
LOC: HO.HMGH 11:14
PROVIDERS: PCP Internal Medicine; Visit Provider Internal Medicine
DX: H10.9 Unspecified conjunctivitis (principal)
CPT/HCPCS: 99213

== ENCOUNTER 2024-07-20 18:14 | Emergency (ER) | payer OTHER, SELFPAY ==
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
[2024-07-20 18:43] VITALS: BP 116/67; BP 132/84; PULSE 82; PULSE 86; RESP 16; TEMP 36.8; O2SAT 98; BMI 28.1
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
--- NOTE | 2024-07-20 18:48 | PC.NURSE ---
patient a&ox3, vss, rr equal/non labored pt c/o 04/03 lt hip pain, lt rib pain, pt states my hands are swelling , cspine was cleared by provider.
[2024-07-20] MEDS: Ibuprofen 600 MG TABLET PO (19:04)
--- NOTE | 2024-07-20 19:05 | PC.NURSE ---
pt medicated for 8-9 lt hip/rib pain, provider aware of pain level, pt medicated with motrin per order
[2024-07-20 20:02] VITALS: BP 109/74; PULSE 82; RESP 16; TEMP 37.1; O2SAT 98
[2024-07-20 20:21] VITALS: BP 109/74; PULSE 82; RESP 16; TEMP 37.1; O2SAT 98
== END 2024-07-20 20:22 | disposition home or self-care (01) ==
PROVIDERS: Emergency Provider Internal Medicine
DX: S39.92XA Unspecified injury of lower back, initial encounter (principal); R47.81 Slurred speech; M54.50 Low back pain, unspecified; V89.2XXA Person injured in unspecified motor-vehicle accident, traffic, initial encounter; Y93.89 Activity, other specified; Y92.488 Other paved roadways as the place of occurrence of the external cause; Y99.8 Other external cause status; Z79.899 Other long term (current) drug therapy; F17.210 Nicotine dependence, cigarettes, uncomplicated
CPT/HCPCS: 71101; 99283; 99284

== ENCOUNTER 2025-02-01 12:56 | Outpatient (AMB) | payer OTHER, SELFPAY ==
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
[2025-02-01 13:09] VITALS: BP 108/70; PULSE 74; O2SAT 98; BMI 28.3
== END 2025-02-01 15:23 | disposition home or self-care (01) ==
PROVIDERS: Visit Provider Physician Assistant Medical
DX: B36.0 Pityriasis versicolor (principal)

== ENCOUNTER → 2025-02-01 12:56 | Outpatient (BNVA) | payer OTHER, SELFPAY | PROVIDERS: Visit Provider Physician Assistant Medical | DX: Z13.89 Encounter for screening for other disorder (principal) ==

== ENCOUNTER 2025-02-02 09:50 | Outpatient (AMB) | payer OTHER, SELFPAY ==
--- NOTE | 2025-02-02 10:23 | MHC.OFFWIV ---
Intake Vital Signs 02/02/25 10:30 Height 5 ft 2 in Weight 155 lb BMI 28.3 BP 108/66 Blood Pressure Location Lt brachial Position Sitting Pulse 99 Pulse Source Pulse Oximeter Temp 98.1 F Temp Source Oral Pulse Oximetry (%) 96 Oxygen Delivery Method Room Air Intake Visit Reasons: EP Rash, worse Intake Note: Pt presents to the office today for c/o a rash that is worsening. Patient Tobacco Use Status: Current someday Tobacco user Allergies penicillin V Allergy (Unknown, Verified 02/02/25 10:32) rash HPI HPI Comments History of Present Illness Details History of Present Illness - The patient is a 54-year-old female presenting with a skin rash evaluation and has questions regarding management of it, was here yesterday. - Reports a recurrent skin condition with hypopigmented macules, initially noted last year, reappearing with tanning. - Affected areas include the back and abdomen, with previous treatment involving ketoconazole shampoo and terbinafine cream. - Confusion over shampoo application instructions noted, with condition identified as Tinea Versicolor, exacerbated by heat and humidity. She did pick pulling machine tender the 2% ketoconazole shampoo but did not pick pulling machine tender the terbinafine as it wasn't covered by her ins co. Physical Exam General: Cooperative, healthy appearing, comfortable, no acute distress and well developed Orientation: Patient oriented x3 Limitations: No limitations Head: Normal to inspection Ears: Hearing grossly normal bilaterally Nose: Normal External nose present Face and sinus: Normal facial exam Eyes: Appearance normal, both eyes and all related structures Neck: Normal visual inspection and Yes full ROM Respiratory: Normal respiratory effort and able to speak in complete sentences. Skin: hypopigmented rash throughout neck, chest, abdomen, back and upper neck extending into scalp. 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 Ketoconazole 2% shampoo is applied to affected areas and washed off after five minutes. We typically advise patients to treat for three consecutive days. She can also add in some antifungal cream but it is not necessary; A typical treatment course for other formulations of ketoconazole (eg, cream, foam) or terbinafine is daily or twice daily application for 14-21 days. 2. Selsun Blue can be used daily for her dandruff. 3. Educated the patient on the nature of Tinea Versicolor and its recurrence, emphasizing the role of heat and humidity. 4. If rash does not resolve in the coming weeks, she should follow up with her PCP or return to this clinic. Medications: Discontinued ketoconazole 2% Apply to affected skin while damp, lather, leave on 5 -10 minutes, and rinse. Discontinued Reason: Doctor's Order 1 appl topical DAILY 14 days 120 mL 0RF Coding Level of Care Code Est Pt Level 3 (36550) Diagnoses Tinea versicolor B36.0
[2025-02-02 10:30] VITALS: BP 108/66; PULSE 99; TEMP 36.7; O2SAT 96; BMI 28.3
== END 2025-02-02 11:07 | disposition home or self-care (01) ==
PROVIDERS: Visit Provider Physician Assistant
DX: B36.0 Pityriasis versicolor (principal)

== ENCOUNTER 2025-02-14 11:03 | Outpatient (AMB) | payer OTHER, SELFPAY ==
--- NOTE | 2025-02-14 11:10 | MHC.PC.OV ---
Vital Signs 02/14/25 11:11 Height 5 ft 2.2 in Weight 157 lb 8 oz BMI 28.6 BP 122/78 Blood Pressure Location Lt brachial Position Sitting Respiration 16 Pulse 80 Pulse Source Pulse Oximeter Temp 98.1 F Temp Source Temporal Artery Scan Pulse Oximetry (%) 98 Oxygen Delivery Method Room Air Intake Visit Reasons: Est Care~ Transfer Dr. Del Real Requesting PE Digital Ad Trafficker Required: No Accompanied by: Self / Same As Patient Allergies penicillin V Allergy (Unknown, Verified 02/14/25 11:31) rash Medication List - Last Reconciled 02/14/25 by Mary Alice Stone PA-C ketoconazole 2% topical levothyroxine 100 mcg PO DAILY norethindrone (contraceptive) (Incassia) 0.35 mg PO DAILY Tobacco use date assessed: 02/14/25 Dental Screening Dental Screen Date: 02/14/25 Did you have a dental visit in the last 12 months?: Yes Did you have a dental problem in the last 6 months where you did not have access to dental care?: No Was dental information given to patient?: Patient has dentist HPI Est Care~ Transfer Dr. Del Real Requesting PE HPI Details The patient is a 54-year-old female presenting to establish a new primary care provider, annual physical examination along for management of tinea versicolor and constipation. The patient has a history of hypothyroidism, managed with levothyroxine. She reports feeling tired, suggesting a possible need for dosage adjustment. The patient has been experiencing tinea versicolor for approximately one year, initially mistaking it for peeling skin after tanning. She has used ketoconazole shampoo and cream with limited success and reports conflicting instructions from healthcare providers regarding its use. The condition is widespread, affecting her back and possibly requiring oral antifungal treatment. The patient reports chronic constipation and abdominal bloating, with episodes of severe discomfort and swelling. She has not been using stool softeners but is open to trying them to alleviate symptoms. Preventative care measures discussed include a mammogram, which she has not had in two years, and colon cancer screening using Cologuard. 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 [facility] Medical History Colon cancer screening Screening mammogram for breast cancer Constipation Establishing care with new doctor, encounter for Intermittent constipation Intermittent abdominal pain Hypothyroid Family History Father No problems noted. Mother No problems noted. 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 1. Little interest or pleasure in doing things: not at all 2. Feeling down, depressed, or hopeless: not at all 3. Trouble falling or staying asleep, or sleeping too much: not at all 4. Feeling tired or having little energy: not at all 5. Poor appetite or overeating: not at all 6. Feeling bad about yourself - or that you are a failure or have let yourself or your family down: not at all 7. Trouble concentrating on things, such as reading the newspaper or watching television: not at all 8. Moving or speaking so slowly that other people could have noticed. Or the opposite - being so fidgety or restless that you have been moving around a lot more than usual: not at all 9. Thoughts that you would be better off or of hurting yourself in some way: not at all Total score: 0 Depression Screening Interpretation: Negative Depression Screening Done: Yes 54964 - PHQ-9 Billing: Yes Source: Developed by Drs. Emil Rivera, Isha Aquino, Paulo Shepherd and colleagues, with an educational jennifer from [employer]. Thrive Questionnaire Date Thrive assessed: 02/14/25 I am a: Patient What is your living situation today?: I have a steady place to live Within the past 12 months, did the food you bought not last and you didn't have the money to get more?: Never true Within the past 12 months, did you worry whether your food would run out before you got money to buy more?: Never true Do you have trouble paying for medicines?: No Do you have trouble getting transportation to medical appointments?: No Do you have trouble paying your heating and electricity bill?: No Do you have trouble taking care of your child, family member or friend?: No Do you have trouble with day-to-day activities such as bathing, preparing meals, shopping, managing finances, etc.?: No Are you currently unemployed and looking for a job?: No Are you interested in more education?: No Please select the resources that you would like help with: None Currently or been in a relationship where the following occur: No concerns reported THRIVE Score: 0 AUDIT C Alcohol Use Questionnaire (AUDIT-C) 1. How often do you have a drink containing alcohol?: Monthly or less 2. How many drinks containing alcohol do you have on a typical day when you are drinking?: 1 or 2 3. How often do you have six or more drinks on one occasion?: Never Total Score: 1 Score Reviewed/Action Taken: No REHAN-7 AMB Questionnaire REHAN-7 Date REHAN - 7 assessed: 02/14/25 Feeling nervous, anxious, or on edge: 0 = Not at all Not being able to stop or control worryin = Not at all Worrying too much about different things: 0 = Not at all Trouble relaxin = Not at all Being so restless that it is hard to sit still: 0 = Not at all Becoming easily annoyed or irritable: 0 = Not at all Feeling afraid as if something awful might happen: 0 = Not at all Total REHAN-7 score (0-4 normal; 5-9 mild; 10-14 moderate; 15-21 severe): 0 Source: Developed by Drs. Emil Rivera, Isha Aquino, Paulo Shepherd and colleagues, with an educational jennifer from [employer]. REHAN-7 Assessment Billing REHAN-7 Assessment Tool: REHAN-7 Assessment 51706 Review of Systems Const Details: - Dermatological: Reports widespread skin lesions consistent with tinea versicolor. - Gastrointestinal: Reports chronic constipation and abdominal bloating, denies black or bloody stools. - Endocrine: Reports fatigue, possibly related to hypothyroidism. Physical exam (Primary Care) Vital Signs: Last Vital Signs Temp 98.1 F 02/14/25 11:11 Pulse 80 02/14/25 11:11 Resp 16 02/14/25 11:11 BP 122/78 02/14/25 11:11 Pulse Ox 98 02/14/25 11:11 Oxygen Delivery Method Room Air 02/14/25 11:11 Care Plan Goal for BP management: 140/90 at Goal BMI result Body Mass Index 28.6 BMI Assessment/Plan discussion: High BMI High, discussed plan: lifestyle, weight reduction, dietary, physical activity and alcohol moderation Tobacco/Smoking Status: Tobacco use Status Tobacco use date assessed 02/14/25 02/14/25 11:25 Patient Tobacco Use Status Former Tobacco user 02/14/25 11:25 Tobacco use type Cigarette 02/14/25 11:25 e-Cigarette/Vaping Use Never Used 02/14/25 11:25 PHQ-9: PHQ-9 Score PHQ-9: Total score 0 02/14/25 11:25 Depression Screening Interpretation: Negative Thrive Assessment: Date of Thrive Assessment Date Thrive assessed 02/14/25 02/14/25 11:25 Currently or been in a relationship where the following occur: No concerns reported Const Other: Appearance: Alert. Oriented X3. No acute distress. Head: Normal external exam. Normocephalic. Atraumatic. Eyes: Pupils are equal, round, and reactive to light. Extraocular movements intact. Conjunctiva and sclera normal. Eyelids normal. Ears: External auditory canal normal. Tympanic membranes normal. Throat: Pharynx normal. Uvula midline. Moist mucous membranes. Neck: Normal inspection. Neck supple. Full range of motion. No adenopathy. Thyroid Normal. No meningeal signs. No neck mass noted. Cardiovascular: Normal heart rate and rhythm. Heart sound normal. No murmurs noted. Pulses normal throughout. Respiratory: No respiratory distress. Painless inspiration. Breath sounds normal. No wheezes/rales/rhonchi noted. Chest nontender. No accessory muscle usage noted or decreased air movement noted. Abdomen: Soft and nontender. Bowel sounds normal in all 4 quadrants. No distention noted. No organomegaly noted. No visible injury noted. Reports a little bit of belly pain and swelling, feels constipated. Back: No costovertebral angle tenderness. Full range of motion noted. Skin: Skin warm and dry. Normal skin color. Normal skin turgor. Tinea versicolor noted to back and shoulder area. No signs of infection. No additional rashes/lesions/lacerations noted. Extremities: No lower extremity edema. Extremities exhibit normal range of motion. Extremities nontender. Neuro: Oriented X 3. No motor deficit. No sensory deficit. Reflexes normal. Coding Level of Care Code Est Pt Level 4 (90946) Est Pt Prev Care 40-64y(20145) Diagnoses Establishing care with new doctor, encounter for Z76.89 Annual physical exam Z00.00 Hypothyroidism E03.9 Constipation K59.00 Screening mammogram for breast cancer Z12. Colon cancer screening Z12. Tinea versicolor B36.0 Additional Codes PHQ-9 - 74585 - PHQ-9 Billing: Yes ([id number]) REHAN-7 Assessment Billing - REHAN-7 Assessment Tool: REHAN-7 Assessment 05585 ([id number]) Assessment & Plan Assessment & Plan (1) Establishing care with new doctor, encounter for: Code(s): Z76.89 - Persons encountering health services in other specified circumstances Category: Medical (2) Annual physical exam: Code(s): Z00.00 - Encounter for general adult medical examination without abnormal findings (3) Hypothyroidism: Code(s): E03.9 - Hypothyroidism, unspecified Category: Medical Plan: The patient will have her thyroid function retested to assess the adequacy of her current levothyroxine dosage, as she reports feeling tired, which may indicate under-treatment. (4) Constipation: Code(s): K59.00 - Constipation, unspecified Category: Medical Plan: The patient will be started on stool softeners to manage her constipation and alleviate abdominal bloating. A stool test for H. pylori will be conducted to rule out any underlying gastrointestinal infection. Along with a CT scan abdomen pelvis with IV contrast. Condition is stable will continue to monitor. (5) Screening mammogram for breast cancer: Code(s): Z12.31 - Encounter for screening mammogram for malignant neoplasm of breast Category: Medical Plan: The patient is due for a mammogram, which will be scheduled to ensure timely breast cancer screening. (6) Colon cancer screening: Code(s): Z12.11 - Encounter for screening for malignant neoplasm of colon Category: Medical Plan: The patient will undergo colon cancer screening using Cologuard, with instructions to follow up promptly if results are positive. (7) Tinea versicolor: Code(s): B36.0 - Pityriasis versicolor Category: Medical Plan: The patient will be referred to dermatology for further evaluation and management of tinea versicolor. In the interim, she will start using a prescribed antifungal shampoo and oral medication, with liver function tests to be conducted before and during treatment due to potential hepatotoxicity. Plan Plan Patient was informed and verbally consented to the use of an ambient scribe for clinic note documentation during this visit. 1. Hypothyroidism The patient will have her thyroid function retested to assess the adequacy of her current levothyroxine dosage, as she reports feeling tired, which may indicate under-treatment. 2. Tinea Versicolor The patient will be referred to dermatology for further evaluation and management of tinea versicolor. In the interim, she will start using a prescribed antifungal shampoo and oral medication, with liver function tests to be conducted before and during treatment due to potential hepatotoxicity. 3. Constipation The patient will be started on stool softeners to manage her constipation and alleviate abdominal bloating. A stool test for H. pylori will be conducted to rule out any underlying gastrointestinal infection. 4. Preventative Care: Mammogram The patient is due for a mammogram, which will be scheduled to ensure timely breast cancer screening. 5. Preventative Care: Colon Cancer Screening With Cologuard The patient will undergo colon cancer screening using Cologuard, with instructions to follow up promptly if results are positive. During the visit, I discussed the management of tinea versicolor, including the use of antifungal shampoo and oral medication, and the importance of monitoring liver function due to potential side effects. We also reviewed the need for a mammogram and colon cancer screening with Cologuard, emphasizing the importance of timely follow-up if results are positive. The patient was advised on managing constipation with stool softeners and the potential need for further gastrointestinal evaluation if symptoms persist. Orders: Orders Comprehensive [place]. Panel Fast Today Z00.00 - Encounter for general adult medical examination without abnormal findings TSH reflex Free T4 Today Z00.00 - Encounter for general adult medical examination without abnormal findings Vitamin B12 and Folate Today Z00.00 - Encounter for general adult medical examination without abnormal findings Vitamin D 25-OH Total Today Z00.00 - Encounter for general adult medical examination without abnormal findings MM screening mammo BI Today Z12.31 - Encounter for screening mammogram for malignant neoplasm of breast CT abdomen pelvis w IV con Today K59.09 - Other constipation, R10.9 - Unspecified abdominal pain H pylori Ag Stool Today K59.09 - Other constipation, R10.9 - Unspecified abdominal pain Complete Blood Count Auto Diff Today Z00.00 - Encounter for general adult medical examination without abnormal findings Lipid Panel Today Z00.00 - Encounter for general adult medical examination without abnormal findings Liver Panel Today Z00.00 - Encounter for general adult medical examination without abnormal findings Hemoglobin A1c Today Z00.00 - Encounter for general adult medical examination without abnormal findings Magnesium Today Z00.00 - Encounter for general adult medical examination without abnormal findings C Reactive Protein Today Z00.00 - Encounter for general adult medical examination without abnormal findings Referrals Dermatology Referral B36.0 - Pityriasis versicolor, L24.3 - Irritant contact dermatitis due to cosmetics Cologuard Test Z12.11 - Encounter for screening for malignant neoplasm of colon, Z12.12 - Encounter for screening for malignant neoplasm of rectum Medications: New polyethylene glycol 3350 (Miralax) 17 grams PO DAILY 30 ea 1RF selenium sulfide 2.3% massage gently into wet skin of area(s) to be cleansed; work into full lather; leave on for 10 mins ; rinse off thoroughly; pat dry 1 appl topical DAILY 180 mL 4RF 7 days B36.0 - Pityriasis versicolor docusate sodium (Colace Clear) 50 mg PO DAILY 90 caps 1RF 90 days fluconazole 300 mg (3 x 100 mg) PO QWEEK 12 tabs 0RF 4 weeks Patient Instructions: - Use the prescribed antifungal shampoo daily and take the oral medication as directed. - Schedule and attend a mammogram appointment. - Complete the Cologuard test and follow up promptly if results are positive. - Start using stool softeners daily to manage constipation. - Get blood work done as soon as possible, including liver function tests.
[2025-02-14 11:11] VITALS: BP 122/78; PULSE 80; RESP 16; TEMP 36.7; O2SAT 98; BMI 28.6
== END 2025-02-14 11:54 | disposition home or self-care (01) ==
LOC: HO.HMCSH 11:03
PROVIDERS: Visit Provider Physician Assistant Medical
DX: Z00.00 Encounter for general adult medical examination without abnormal findings (principal); E03.9 Hypothyroidism, unspecified; K59.00 Constipation, unspecified; B36.0 Pityriasis versicolor; Z76.89 Persons encountering health services in other specified circumstances; Z12.31 Encounter for screening mammogram for malignant neoplasm of breast; Z12.11 Encounter for screening for malignant neoplasm of colon

== ENCOUNTER → 2025-02-14 11:03 | Outpatient (BNVA) | payer OTHER, SELFPAY | PROVIDERS: Visit Provider Physician Assistant Medical | DX: Z00.00 Encounter for general adult medical examination without abnormal findings (principal); E03.9 Hypothyroidism, unspecified; K59.00 Constipation, unspecified; B36.0 Pityriasis versicolor; K59.09 Other constipation; R10.9 Unspecified abdominal pain; Z76.89 Persons encountering health services in other specified circumstances | CPT/HCPCS: 96127 ==

== ENCOUNTER 2025-02-15 08:54 | Outpatient (REF) | payer OTHER, SELFPAY ==
[2025-02-15 09:08] LABS: MANUAL DIFF FLAG NO
[2025-02-15 09:48] LABS: Basophils Percent Auto 0.7 % (0-2); Eosinophils Absolute Auto 0.1 X10*3/uL (0.0-0.4); Hematocrit 43.1 % (37.0-47.0); Hemoglobin 14.1 g/dl (12.0-16.0); Imm Gran Abs Auto 0.01 X10*3/uL (0.00-0.03); Imm Gran Pct Auto 0.2 % (0.0-0.4); Lymphocytes Absolute Auto 1.5 X10*3/uL (1.2-4.9); Lymphocytes Percent Auto 25.4 % (20-40); Mean Corpuscular HGB Conc 32.7 g/dl (31.0-35.0); Mean Corpuscular Hemoglobin 32.6 pg (27.0-33.0); Mean Corpuscular Volume 99.5 fL (80.0-98.0); Mean Platelet Volume 9.1 fL (9.4-12.3); Monocytes Absolute Auto 0.4 X10*3/uL (0.1-1.2); Monocytes Percent Auto 6.7 % (2-11); Neutrophils Absolute Auto 3.9 x10*3/uL (2.0-8.3); Platelet Count 297 X10*3/uL (160-400); Red Blood Count 4.33 X10*6/uL (4.20-5.50); Red Cell Distribution Width 12.4 % (11.0-16.0)
[2025-02-15 09:55] LABS: Estimated Average Glucose 103 mg/dL; Hemoglobin A1c % 5.2 % (<6.0)
[2025-02-15 10:15] LABS: Alanine Aminotransferase 44 U/L (0-31); Alkaline Phosphatase 76 U/L (39-117); Anion Gap 11 (12-20); Aspartate Amino Transferase 37 U/L (5-31); Bilirubin Direct 0.2 mg/dL (0.0-0.5); Bilirubin Total 0.6 mg/dL (0.0-1.0); Blood Urea Nitrogen 14 mg/dL (9-16); C Reactive Protein 0.14 mg/dL (< or = 0.50); Calcium 9.1 mg/dL (8.4-10.2); Carbon Dioxide 25 mmol/L (22-29); Chloride 109 mmol/L (96-108); Cholesterol 235 mg/dL (<200); Estimated Glomerular Filt Rate > 60; Glucose Fasting 101 mg/dL (60-99); HDL Cholesterol 76 mg/dL (>40); LDL Cholesterol Calculated 130 mg/dL (<100); Magnesium 2.1 mg/dL (1.6-2.6); Potassium 4.3 mmol/L (3.3-5.1); Sodium 141 mmol/L (135-145); Total Protein 6.7 g/dL (6.5-8.0); Triglycerides 149 mg/dL (<150)
[2025-02-15 10:36] LABS: TSH reflex Free T4 1.51 uIU/mL (0.32-4.0); Vitamin D 25-OH Total 31.5 ng/mL (>30)
[2025-02-15 10:40] LABS: Folate 6.9 ng/mL (> or = 4.0); Vitamin B12 349 pg/mL (200-900)
== END 2025-02-15 08:55 | disposition home or self-care (01) ==
LOC: HO.LAB 08:54
PROVIDERS: PCP Physician Assistant Medical; Visit Provider Physician Assistant Medical
DX: Z00.00 Encounter for general adult medical examination without abnormal findings (principal); Z13.0 Encounter for screening for diseases of the blood and blood-forming organs and certain disorders involving the immune mechanism; Z13.29 Encounter for screening for other suspected endocrine disorder; Z13.1 Encounter for screening for diabetes mellitus; Z13.228 Encounter for screening for other metabolic disorders; Z13.220 Encounter for screening for lipoid disorders
CPT/HCPCS: 36415; 80053; 80061; 80076; 82248; 82306; 82607; 82746; 83036; 83735; 84443; 85025; 86140

== ENCOUNTER 2025-05-19 12:50 | Outpatient (REF) | payer BC, SELFPAY ==
--- NOTE | ~2025-05-19 | CT_ITS ---
EXAMINATION: CT ABDOMEN PELVIS WITH IV CONTRAST HISTORY: R10.9 - Unspecified abdominal pain COMPARISON: There are no prior studies for available comparison. TECHNIQUE: CT scan of the abdomen and pelvis was performed following administration of 85 mL Omnipaque 350 using standard departmental protocol. Coronal and sagittal reformatted images were generated and reviewed. The patient received oral contrast material. This CT exam was performed with one or more of the following dose reduction techniques: automated exposure control, adjustment of the mA and/or kV according to patient size, use of iterative reconstruction technique. DLP: 360 mGy-cm FINDINGS: LOWER CHEST: The visualized lung bases are clear. There is no pleural effusion. CARDIOVASCULATURE: The heart is normal in size. There is no pericardial effusion. LIVER: The liver is normal in size and contour. No liver mass is identified. The hepatic and portal veins are patent. GALLBLADDER / BILE DUCTS: The gallbladder is unremarkable. There is no intra or extrahepatic biliary ductal dilatation. SPLEEN: The spleen is normal in size. No focal splenic lesion is identified. PANCREAS: The pancreas is unremarkable in appearance. ADRENAL GLANDS: Within normal limits. KIDNEYS/RETROPERITONEUM: No renal calculi are identified. There is no hydronephrosis. No renal masses are identified. LYMPH NODES: No abdominal or pelvic lymphadenopathy. VASCULATURE: The abdominal aorta is normal in caliber. MESENTERY/PERITONEUM: No free fluid. No masses. There is no free intraperitoneal gas. STOMACH: The stomach is collapsed, limiting evaluation. SMALL BOWEL: The small bowel is normal in caliber. COLON: The colon is unremarkable. APPENDIX: The appendix is not seen, however no inflammatory changes are seen adjacent to the cecum. URINARY BLADDER/PELVIC ORGANS: The urinary bladder is collapsed, limiting evaluation. The uterus is unremarkable. BONES / SOFT TISSUES: There is a small fat-containing umbilical hernia and a small fat-containing supraumbilical ventral hernia. There is disc space narrowing at the L5-S1 level CT/CT abdomen pelvis w IV con IMPRESSION: Small fat-containing umbilical hernia and small fat-containing supraumbilical ventral hernia. No inflammatory process is identified. Electronically signed by: Emil Jacobson MD 05/19/2025 03:44 PM EDT
[2025-05-19] MEDS: iohexoL 350 MG/ML 100 ML INFUS..BTL IV (15:21)
[2025-05-19] MEDS: Barium Sulfate Oral (Berry) 450 ML ORAL.SUSP 900 ML PO (15:21)
[2025-05-19 15:39] LABS: Creatinine POC 0.7 mg/dL (0.5-1.4); GFR POC > 60
--- OUTSIDE RECORDS SUMMARY | 2025-05-19 17:37 | XMS_ITS | Encounter Summary ---
Author Organization [facility] Address [address] [place] [id number] Phone Care Team Providers Care Gasateria Attendant Name Role Phone Nirmal Eddy DO Primary Care Provider [phone]- [phone] Encounter Details Date Type Department Care Team (Late st Contact Info) Description 12/22/2019 Transcribe Orders [facility] [address] [place] [address] Alec West MD [address] [facility] [address], [address] [place] [address] [email or web address] Social History Tobacco Use Types Packs/Day Years Used Date Smoking Tobacco: Some Days Smokeless Tobacco: Never Alcohol Use Standard Drinks/Week Comments Yes 0 (1 standard drink = 0.6 oz pur e alcohol) occ Comments Unknown Sex and Gender Information Value Date Recorded Sex Assigned at Female 03/14/2019 8:01 AM EDT Legal Sex Female 9:32 PM EDT Gender Identity Female 03/14/2019 8:01 AM EDT Sexual Orientation Not on file documented as of this encounter Plan of Treatment Not on file documented as of this encounter Visit Diagnoses Not on filedocumented in this encounter Additional Health Concerns Infection Onset Date Last Indicated Resolved Time CoV-Risk 12/22/2019 12/22/2019 01/05/2020 1:23 AM EDT documented as of this encounter Care Teams Gasateria Attendant Relationship Specialty Start Date End Date Nirmal Eddy DO [address] [place] [address] PCP - General Internal Medicine 03/14/19 documented as of this encounter Additional Source Comments The information contained in this document represents components of the legal health record. It is not the complete legal health record.[facility]
--- OUTSIDE RECORDS SUMMARY | 2025-05-19 17:37 | XMS_ITS | Clinical Summary ---
Author Organization [facility] Address [address] [place] [id number] Phone Care Team Providers Care Butane Compressor Operator Name Role Phone Nirmal Eddy Primary Care Provider [phone]- [phone] Allergies Active Allergy Reactions Criticality Noted Date Comments Tree Nuts 07/27/2020 Medications levothyroxine (SYNTHROID, LEVOTHROID) 100 MCG tabletIndication s:not sure on dosage Take 100 mcg by mouth every morning. Indications : not sure on dosage Active ofloxacin (OCUFLOX) 0.3 % ophthalmic solution Place 1 drop into the left eye every 4 (four) hours. 5 mL 03/14/2019 Active INCASSIA 0.35 mg tablet Take 1 tablet by mouth daily. 06/27/2020 Active naproxen (NAPROSYN) 500 MG tablet Take 1 tablet (500 mg total) by mouth 2 (two) times a day with meals. 20 tablet 07/27/2020 Active Active Problems No known active problems Social History Tobacco Use Types Packs/Day Years Used Date Smoking Tobacco: Some Days Smokeless Tobacco: Never Alcohol Use Standard Drinks/Week Comments Yes 0 (1 standard drink = 0.6 oz pur e alcohol) occ Education Answer Date Recorded Are you interested in more education? Not on yuliana e 12/20/2022 Are you concerned about learning? Not on file 12/20/2022 No 12/20/2022 No 12/20/2022 Digital Access Answer Date Recorded No 01/18/2023 No 01/18/2023 No 01/18/2023 Reliable internet access at home? Not on file 01/18/2023 Device with a working camera? Not on file Comments Unknown Sex and Gender Information Value Date Recorded Sex Assigned at Female 03/14/2019 8:01 AM EDT Legal Sex Female 9:32 PM EDT Gender Identity Female 03/14/2019 8:01 AM EDT Sexual Orientation Not on file Last Filed Vital Signs Vital Sign Reading Time Taken Comments Blood Pressure 110/78 07/27/2020 4:57 PM EST Pulse 95 07/27/2020 4:57 PM EST Temperature 37.3 C (99.1 F) 07/27/2020 4:57 PM EST Respiratory Rate 18 03/14/2019 7:56 AM EDT Oxygen Saturation 98% 07/27/2020 4:57 PM EST Inhaled Oxygen Concentration - - Weight 67.6 kg (149 lb) 07/27/2020 4:57 PM EST Height 160 cm (5' 3 ) 03/14/2019 7:56 AM EDT Body Mass Index 26.39 03/14/2019 7:56 AM EDT Plan of Treatment Health Maintenance Due Date Last Done Comments Adult Td,Tdap Booster 1972 LIPID PANEL 1972 TSH LEVEL 1972 DEPRESSION SCREENING 1984 SMOKING Hx and SMOKELESS TOBACCO SCREENING 1985 HEPATITIS C SCREENING 1990 HIV ONE-TIME SCREENING (18-6 5 YEARS) 1990 PNEUMOCOCCAL VACCINES (50+ years) (1 of 2 - PCV) 1991 PAP SMEAR 1993 MAMMOGRAM 2012 COLOGUARD 2017 COLONOSCOPY 2017 COLORECTAL CANCER SCREENING 2017 FIT TEST 2017 FOBT 2017 SIGMOIDOSCOPY 2017 VIRTUAL COLONOSCOPY 2017 ZOSTER VACCINES (1 of 2) 2022 INFLUENZA VACCINE (#1) 2025 0, 06/02/2019 COVID-19 VACCINE (3 - 2024-2 6 season) 2025 09/21/2020, 08/31/2020 HEPATITIS A VACCINES Aged Out No long er eligible based on patient's age to complete this topic HIB VACCINES Aged Out No longer eligi ble based on patient's age to complete this topic MENINGOCOCCAL VACCINES (ACWY) Aged Out No longer eligible based on patient's age to complete this topic MENINGOCOCCAL VACCINES (B) Aged Out N o longer eligible based on patient's age to complete this topic Medical Devices Not on file Care Teams Butane Compressor Operator Relationship Specialty Start Date End Date Nirmal Eddy DO [address] [place] [address] PCP - General Internal Medicine 03/14/19 Additional Source Comments The information contained in this document represents components of the legal health record. It is not the complete legal health record.[facility]
== END 2025-05-19 12:51 | disposition home or self-care (01) ==
LOC: HO.CT 12:50
PROVIDERS: PCP Physician Assistant Medical; Visit Provider Physician Assistant Medical
DX: R10.9 Unspecified abdominal pain (principal); K59.09 Other constipation
CPT/HCPCS: 74177; 77063; 77067; 82565; Q9967

== ENCOUNTER → 2025-05-19 12:57 | Outpatient (BNV) | payer BC, SELFPAY | PROVIDERS: PCP Physician Assistant Medical; Visit Provider Radiology Diagnostic Radiology | DX: Z12.31 Encounter for screening mammogram for malignant neoplasm of breast (principal) | CPT/HCPCS: 74177; 77063; 77067 ==

== ENCOUNTER 2025-06-27 09:40 | Outpatient (AMB) | payer BC, SELFPAY ==
--- NOTE | 2025-06-27 09:51 | A.OFFVIS_ITS ---
Vital Signs 3 06/27/25 09:55 Height 5 ft 2.2 in Weight 142 lb BMI 25.8 BP 100/53 L Blood Pressure Location Lt brachial Position Sitting Pulse 92 Intake Visit Reasons: umbilical/ventral hernia Intake Note: Patient referred by pcp Mary Alice Stone PA-C for evaluation of an umbilical-ventral hernia. Patient c/o: denies pain, tenderness. Pushes it back in. Imaging: Abdomen pelvis CT~05/19/25 Wheel Borer Required: No Accompanied by: Self / Same As Patient Allergies fluconazole (From Diflucan) Allergy (Unknown, Verified 06/27/25 09:52) Hives penicillin V Allergy (Unknown, Verified 06/27/25 09:52) rash Medication List - Last Reconciled 06/27/25 by Adam Carter MD atorvastatin (Lipitor) 10 mg PO BEDTIME docusate sodium (Colace Clear) 50 mg PO DAILY 90 days ketoconazole 2% topical ketoconazole 2% 1 appl topical Q2W levothyroxine 100 mcg PO DAILY norethindrone (contraceptive) 0.35 mg PO DAILY polyethylene glycol 3350 (Miralax) 17 grams PO DAILY HPI Comments Details: 54-year-old female patient presenting for evaluation of an abdominal wall hernia located just above the umbilicus. She occasionally notes the hernia to increase in size but is able to apply pressure on the lump causing the lump to reduce in size. She denies any significant pain in this location and denies a previous history of surgery in this location. 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 The hernia does reduce with light pressure and when laying in the supine position. She denies any associated symptoms including nausea, vomiting, diarrhea, or constipation. Her past history is significant only for hypothyroidism. [facility] Medical History section wound complication Ventral hernia Umbilical hernia Hypercholesteremia Hyperlipidemia LDL goal <100 History of mammogram (~05/22/22) Colon cancer screening Screening mammogram for breast cancer Constipation Establishing care with new doctor, encounter for Intermittent constipation Intermittent abdominal pain Hypothyroid Family History Father No problems noted. Mother No problems noted. 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 Cognitive needs: No Hearing needs: No Vision needs: No Review of Systems Const All systems reviewed & are unremarkable except as noted in HPI and below Physical Exam Vital Signs: Last Vital Signs Pulse 92 06/27/25 09:55 BP 100/53 L 06/27/25 09:55 BMI result Body Mass Index 25.8 Const General: cooperative and no acute distress Nutritional Appearance: well nourished Orientation/consciousness: patient oriented x3 Limitations: no limitations HEENT Head: Yes normocephalic and Yes atraumatic Ears: hearing grossly normal bilaterally Resp Effort & Inspection: normal respiratory effort, no audible wheezes, no cough and no respiratory distress Cardio Jugular venous distension: no JVD GI Inspection: Yes normal to inspection Palpation (GI): Soft to palpation, nontender, no guarding, not rigid and Hernia present umbilical and ventral (3 cm diameter, reduces with light pressure, nontender) Percussion: Yes normal to percussion Auscultation: normal bowel sounds Rectal Exam - Female: deferred Abdomen image: 2 1. 2. Skin Other: Warm, dry, no rash Neuro General: patient oriented x3 Extrem General: Yes no clubbing, cyanosis or edema Results Reviewed Results Reviewed: CT abdomen and pelvis: Assessment & Plan Assessment & Plan (1) Ventral hernia: Code(s): K43.9 - Ventral hernia without obstruction or gangrene Category: Medical Qualifiers: Obstruction and gangrene presence: without obstruction or gangrene Q ualified Code(s): K43.9 - Ventral hernia without obstruction or gangrene (2) Umbilical hernia: Code(s): K42.9 - Umbilical hernia without obstruction or gangrene Category: Medical Qualifiers: Obstruction and gangrene presence: without obstruction or gangrene Q ualified Code(s): K42.9 - Umbilical hernia without obstruction or gangrene Plan 54-year-old female patient presenting with both a ventral and umbilical hernia confirmed on CT. Examination reveals a reducible ventral and umbilical hernia which measures total 3 cm in diameter. I recommended repair of this reducible umbilical hernia and ventral hernia with mesh as a short-stay surgery and after discussion of the procedure, risks and alternatives, she consents to repair of this ventral and umbilical hernia with mesh. Coding Level of Care Code New Pt Level 4 (84474) Diagnoses Ventral hernia without obstruction or gangrene K43.9 Obstruction and gangrene presence: without obstruction or gangrene Umbilical hernia without obstruction and without gangrene K42.9 Obstruction and gangrene presence: without obstruction or gangrene
[2025-06-27 09:55] VITALS: BP 100/53; PULSE 92; BMI 25.8
--- OUTSIDE RECORDS SUMMARY | 2025-06-27 11:06 | XMS_ITS | Encounter Summary ---
Author Organization [facility] Address [address] [place] [id number] Phone Care Team Providers Care Protective Services Officer Name Role Phone Nirmal Eddy DO Primary Care Provider [phone]- [phone] Encounter Details Date Type Department Care Team (Late st Contact Info) Description 12/22/2019 Transcribe Orders [facility] [address] [place] [address] Alec West MD [address] [facility] [place] [address] Social History Tobacco Use Types Packs/Day Years [...] documented as of this encounter Care Teams Protective Services Officer Relationship Specialty Start Date End Date Nirmal Eddy DO [address] [place] [address] PCP - General Internal Medicine 03/14/19 documented as of this encounter Additional Source Comments The information contained in this document represents components of the legal health record. It is not the complete legal health record.[facility]
--- OUTSIDE RECORDS SUMMARY | 2025-06-27 11:06 | XMS_ITS | Clinical Summary ---
Author Organization [facility] Address [address] [place] [phone] Phone Care Team Providers Care Mailmaster Name Role Phone Nirmal Eddy Primary Care Provider [phone]- [phone] Allergies Active Allergy Reactions Criticality Noted Date [...] - 2024-2 6 season) 2025 09/21/2020, 08/31/2020 RSV VACCINE (1 - 1-dose 75+ series) 2047 HEPATITIS A VACCINES Aged Out No long [...] Medical Devices Not on file Care Teams Mailmaster Relationship Specialty Start Date End Date Nirmal Eddy DO [address] [place] [address] PCP - General Internal Medicine 03/14/19 Additional Source Comments The information contained in this document represents components of the legal health record. It is not the complete legal health record.[facility]
== END 2025-06-27 10:09 | disposition home or self-care (01) ==
LOC: HO.HGS 09:41
PROVIDERS: PCP Physician Assistant Medical; Visit Provider Surgery
DX: K43.9 Ventral hernia without obstruction or gangrene (principal); K42.9 Umbilical hernia without obstruction or gangrene
CPT/HCPCS: 99204